=== PATIENT | male | born 1975 | race Caucasian/White ===

== ENCOUNTER 2018-09-10 18:22 | Emergency (ER) | payer OTHER ==
[~2018-09-10] VITALS: Ht 195.6 cm; Wt 95.5 kg
[2018-09-10 18:34] VITALS: Ht 195.6 cm; Wt 95.5 kg
[2018-09-10] MEDS ORDERED: MUCINEX600 MG PO (18:36)
[2018-09-10] MEDS ORDERED: DOXYCYCLINE HY100 M2 PO (19:40)
[2018-09-10] MEDS ORDERED: CORTISPORIN OTI10 M1 LEFT EAR (19:40)
[2018-09-10] MEDS ORDERED: CLARITIN 10 MG10 MG PO (19:41)
[2018-09-10 20:02] VITALS: BP 120/80
== END 2018-09-10 20:02 | disposition home or self-care (01) ==
LOC: D.ER 18:22
DX: H66.92 Otitis media, unspecified, left ear (principal); J01.90 Acute sinusitis, unspecified; H60.92 Unspecified otitis externa, left ear

== ENCOUNTER 2020-02-12 15:00 | Emergency (ER) | payer MEDICAID ==
[~2020-02-12] VITALS: Ht 195.6 cm; Wt 90.9 kg
[~2020-02-12 15:00] MED LIST: CLARITIN 10 MG10 MG PO; CORTISPORIN OTI10 M1 LEFT EAR; DOXYCYCLINE HY100 M2 PO; MUCINEX600 MG PO
[2020-02-12 15:08] VITALS: Ht 195.6 cm; Wt 90.9 kg
[2020-02-12] MEDS ORDERED: RISPERDAL2 MG (15:10)
[2020-02-12 15:42] LABS: BILIRUBIN NEGATIVE (NEGATIVE); GLUCOSE NEGATIVE (NEGATIVE); KETONE NEGATIVE (NEGATIVE); NITRITE NEGATIVE (NEGATIVE); UROBILINOGEN NORMAL (NORMAL)
[2020-02-12 15:48] LABS: BASOPHILS 0.1 % (0-2); EOSINOPHILS 0.3 % (0-7); HEMATOCRIT 40.4 % (42.0-54.0); HEMOGLOBIN 13.9 g/dL (13.5-17.5); IMMATURE GRANULOCYTES 0.2 % (0-5); LYMPHOCYTES 27.6 % (15-50); MCH 30.4 pg (26.0-34.0); MCHC 34.4 g/dL (31.0-37.0); MCV 88.4 fL (80.0-100.0); MEAN PLATELET VOLUME 9.4 fL (7.4-10.4); MONOCYTES 8.4 % (2-11); NEUTROPHILS 63.4 % (40-80); PLATELET COUNT 272 10x3/uL (130-400); RBC 4.57 10x6/uL (4.20-6.10); RDW 13.1 % (11.5-14.5); UDS - AMPHET NEGATIVE QUAL (NEGATIVE); UDS - BARB NEGATIVE QUAL (NEGATIVE); UDS - BENZO NEGATIVE QUAL (NEGATIVE); UDS - COCAINE NEGATIVE QUAL (NEGATIVE); UDS - OPIATE NEGATIVE QUAL (NEGATIVE); UDS - PCP NEGATIVE QUAL (NEGATIVE); UDS - THC POSITIVE QUAL (NEGATIVE); WBC 8.8 10x3/uL (4.8-10.8)
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
[2020-02-12 16:09] LABS: ALBUMIN 3.8 g/dL (3.4-5.0); ALKALINE PHOSPHATASE 105 U/L (30-120); ALT (SGPT) 23 U/L (10-68); BILIRUBIN - TOTAL 0.54 mg/dL (0.2-1.3); CALC OSMOLALITY 264 mosm/kg (275-300); CARBON DIOXIDE 24.3 mmol/L (21.0-32.0); CHLORIDE - SERUM 102 mmol/L (98-107); GLUCOSE 103 mg/dL (74-106); MAGNESIUM - SERUM 1.7 mg/dL (1.8-2.4); POTASSIUM - SERUM 4.1 mmol/L (3.5-5.1); PROTEIN - SERUM 7.3 g/dL (6.4-8.2); SODIUM 133 mmol/L (136-145); UREA NITROGEN 11 mg/dL (7-18); eGFR NON AFRICAN AMERICAN 86 mL/min (90-120)
[2020-02-12 16:23] LABS: CALCIUM 9.1 mg/dL (8.5-10.1)
[2020-02-12 19:09] VITALS: BP 126/72
== END 2020-02-12 19:22 ==
LOC: D.ER 15:00
PROVIDERS: Family Medicine
DX: R45.851 Suicidal ideations (principal); R44.0 Auditory hallucinations; R44.1 Visual hallucinations